=== PATIENT | male | born 1955 | race American Indian/Alaskan Native ===

== ENCOUNTER 2017-10-16 06:06 | Day surgery (SDC) | payer BC ==
[2017-10-05 11:03] VITALS: BMI 30.8
[2017-10-16] MEDS ORDERED: Bupivacaine 0.5% Inj(30mL) ONE (07:24)
[2017-10-16] MEDS ORDERED: Lidocaine 1% Inj (20ml) ONE (07:24)
[2017-10-16] MEDS ORDERED: Propofol 10 mg/ml Inj (20 ML) ONE (07:42)
[2017-10-16] MEDS ORDERED: Midazolam 2 MG/2 ML VIAL ONE (07:42)
--- NOTE | 2017-10-16 08:38 | PCM.SURG1 ---
Surgeon's Initial Post Op Note - Surgeon's Notes Surgeon: Dr. Morteza Vasquez Cnc Operator Programmer: Gato Perez PGY2 Type of Anesthesia: IV Sedation, Local (6cc 1:1 mixture 1% lidocaine plain & 0.5 % marcaine plain) Anesthesia Administered By: Dr. Posey Pre-Operative Diagnosis: 1) Right 2nd digit hammertoe. 2) Right 2nd digit diabetic foot ulcer. 3) Right 2nd digit osteomyelitis Operative Findings: See operative report. M: 3-0 nylon Post-Operative Diagnosis: Same as above Operation Performed: Right 2nd digit PIPJ arthroplasty Specimen/Specimens Removed: 1) Right 2nd digit bone. 2) Right 2nd digit bone culture. 3) Right 2nd digit wound culture Estimated Blood Loss: EBL {In ML}: 1 Blood Products Given: N/A Drains Used: No Drains Post-Op Condition: Good Date of Surgery/Procedure: 10/16/17 Time of Surgery/Procedure: 08:36
[2017-10-16] MEDS ORDERED: Oxycodone/Acetaminophen 5/325 mg Tab PO PRN ×2 (08:39)
[2017-10-16] MEDS ORDERED: Lactated Ringer's 1,000 ML IV SCH (08:45)
[2017-10-16 09:02] VITALS: TEMP 98
[2017-10-16 09:30] VITALS: RESP 18
[2017-10-16 10:12] VITALS: PULSE 83; O2SAT 98
[2017-10-16 11:00] VITALS: BP 111/75
--- NOTE | 2017-10-16 13:39 | OP ---
Copied To: Cha Perez DPM Attending MD: Morteza Vasquez DPM PROCEDURE DATE: 10/16/2017 SURGEON: Dr. Morteza Vasquez DPM OFFICE MESSENGER: Dr. Cha Perez DPM, PGY-2. ANESTHESIOLOGIST: Dr. Posey. TYPE OF ANESTHESIA: IV sedation with local, 6 mL of 1:1 mixture of 1% lidocaine and 0.5% Marcaine plain. PREOPERATIVE DIAGNOSES: 1. Right second digit hammertoe. 2. Right second digit diabetic foot ulcer. 3. Right second digit osteomyelitis. POSTOPERATIVE DIAGNOSES: 1. Right second digit hammertoe. 2. Right second digit diabetic foot ulcer. 3. Right second digit osteomyelitis. PROCEDURE PERFORMED: Right second digit PIPJ arthrodesis INDICATION: The patient is a 62-year-old male with the above-mentioned diagnoses. Patient has exhausted conservative treatments at this time and now requests surgical intervention. Patient signed the consent after careful explanation of risks, benefits, alternatives, and complications to procedure and wishes to proceed. No guarantees were given or implied. N.p.o. was confirmed prior to taking the patient to the Operating Room. PREPARATION: The patient was brought to the Operating Room and placed on the operating room table in a supine position. Time-out was performed for identification of the correct patient and procedure. After the induction of IV sedation, a total of 6 mL of 1:1 mixture of 1% lidocaine plain and 0.5% Marcaine plain was administered in a digital block fashion to the second digit. Once local anesthesia was received, right foot was then prepped and draped in normal sterile manner. A sterile ankle tourniquet was placed in the supramalleolar position, the leg was exsanguinated using an Esmarch bandage, inflated to 225mmHg, and the procedure began. DESCRIPTION OF PROCEDURE: Attention was directed to the dorsal aspect of the right second digit where a semi elliptical incision was made overlying the proximal interphalangeal joint of the second digit. The incision was carried down through subcutaneous layer to the level of bone being careful to identify and retract all vital neurovascular structures. All bleeders were cauterized and ligated as necessary. At this time, a transverse tenotomy and capsulotomy was performed to the proximal interphalangeal joint at the second digit of the right foot. The head of the proximal phalanx was then freed of its capsular and ligamentous structures and attachments. The base of the middle phalanx was also freed of its capsular and ligamentous attachments. Then, utilizing a sagittal saw, the base of the middle phalanx was resected and passed from the operative field to be sent to Pathology. Following this, the head of the proximal phalanx was resected and passed from the operative field to be sent to Pathology. The bone quality of the base of the middle phalanx and head of the proximal phalanx were noted to be soft and brittle in nature. A right second digit bone culture was then taken for Pathology and likewise, a wound culture was taken and sent to Pathology. The wound was then flushed with copious amounts of normal sterile saline. Correction of the deformity was assessed at this time and noted to be excellent. At this time, the wound was flushed with copious amounts of sterile saline. Following this, the skin was plicated and reapproximated with 3-0 nylon in a vertical mattress technique. Postoperative dressings include Betadine-soaked Adaptic, Betadine-soaked gauze, sterile gauze, Kerlix and an Aba wrap. POSTOPERATIVE CONDITION: The patient tolerated the anesthesia and procedure well and was escorted to the Recovery Room with vital signs stable and neurovascular status intact to the right lower extremity. The patient is to be weightbearing as tolerated in a surgical shoe to the right lower extremity and the patient is to follow up with Dr. Mortzea Vasquez on an outpatient basis. Cha Perez DPM Morteza Vasquez DPM ANNALEE
--- NOTE | 2017-10-16 13:48 | RAD ---
Date of service: 10/16/2017 PROCEDURE: Right Foot Radiographs. HISTORY: s/p right 2nd digit hammertoe correction COMPARISON: None. FINDINGS: BONES: There has been partial resection of the 2nd proximal phalanx in the base of the middle phalanx. Degenerative changes are seen in the 1st MTP joint JOINTS: Normal. SOFT TISSUES: Normal. OTHER FINDINGS: None. IMPRESSION: There has been partial resection of the 2nd proximal phalanx and the base of the middle phalanx. Degenerative changes are seen in the 1st MTP joint
== END 2017-10-16 11:00 | disposition home or self-care (01) ==
LOC: SDS 06:06
PROVIDERS: ATTEND Podiatrist
DX: M20.41 Other hammer toe(s) (acquired), right foot (principal); E11.69 Type 2 diabetes mellitus with other specified complication; M86.171 Other acute osteomyelitis, right ankle and foot; E11.621 Type 2 diabetes mellitus with foot ulcer; L97.519 Non-pressure chronic ulcer of other part of right foot with unspecified severity; M86.9 Osteomyelitis, unspecified
CPT/HCPCS: 28285; 36415; 73630; 82948; 84132; 87070; 87075; 88304; 88311; J0690; J2001; J2250; J2405; J2704; J3010; J7120 ×2